=== PATIENT | male | born 1995 | race African-American/Black ===

== ENCOUNTER 2024-07-24 08:49 | Inpatient (IN) ==
--- NOTE | 2024-07-24 09:10 | ED Physician Documentation ---
PD HPI URI Stated complaint Stated Complaint: BLURRED VISION, MUSCLE SORENESS Chief complaint Chief Complaint: General History obtained from History obtained from: Patient History of Present Illness Timing - onset: How many days ago (1) Timing duration: Days (1) Timing details: Abrupt onset and Still present (noted pains and soreness of muscles diffusely yesterday, increased today, with noted dark colored urine and feeling lightheaded. Recent URI symptoms mild this past week. Works out at gym regularly but not recently excessive. No supplements such as creatine, no steroids, no keto diet, no statins. ) Associated symptoms: Nasal congestion, Rhinorrhea and Dry cough; No Fever, Sore throat or NVD Improves by: Rest Worsened by: Activity Similar symptoms before: Diagnosis (episode of rhabdo years ago with illness and working out hard. ) Recently seen: Not recently seen Meds/Allgy Home Medications Ambulatory Orders Medication Instructions Recorded Confirmed ascorbic acid (vitamin C) 500 mg 500 mg PO DAILY 07/24/24 07/24/24 tablet (Vitamin C) cholecalciferol (vitamin D3) 25 25 mcg PO DAILY 07/24/24 07/24/24 mcg (1,000 unit) capsule omeprazole 20 mg delayed 20 mg PO DAILY 07/24/24 07/24/24 release,disintegrating tablet Allergies Allergies Allergy/AdvReac Type Severity Reaction Status Date / Time No Known Drug Allergies Allergy Verified 07/24/24 09:09 [facility] Medical History Medical History (Updated 07/24/24 @ 22:43 by Lonny Cristobal MD) History of rhabdomyolysis Surgical History Surgical History (Updated 07/24/24 @ 09:07 by Alexandra Arceo, RN, BSN) No pertinent past surgical history Social History Social History (Updated 07/24/24 @ 09:07 by Alexandra Arceo, JOSE, BSN) Smoking Status: Never smoker Second hand tobacco smoke exposure: No Do you dip or chew tobacco?: No Do you vape?: No Relationship: Level: Independent Do you feel safe in your home environment?: Yes Suffered physical, verbal, emotional, or financial abuse?: No Frequency: Occasional Exam Constitutional normal general appearance, distress noted (mild) (having muscle pains with exxtremities movement and use but does not appear limited in movements. ) and average body habitus HENMT oropharynx normal Lymph no lymphadenopathy noted Chest inspection of chest normal and palpation of chest normal Respiratory breath sounds equal bilaterally and normal respiratory effort Cardiovascular normal heart rate noted, regular rhythm noted, no rub and no murmur Gastrointestinal abdomen soft to palpation, nontender to palpation and no hepatosplenomegaly Extremities general mild muscl tenderness to palpation. No rash nor sores noted. Neurology no movement abnormality noted Psychiatry mental status grossly normal, oriented x3 and thought process normal Skin skin color normal, no rash and no lesions Results Vitals Vitals: Vital Signs - 24 hr 07/24/24 09:02 07/24/24 09:24 07/24/24 10:06 Temperature 36.7 C Temperature Source Pulse Rate 62 63 Respiratory Rate 17 18 Blood Pressure 153/86 H 153/86 H O2 Saturation 100 99 O2 Source Room air Room air Pain Intensity 7 7 6 07/24/24 11:08 Temperature 36.8 C Temperature Source Temporal Artery Scan Pulse Rate 66 Respiratory Rate 16 Blood Pressure 99/80 O2 Saturation 94 O2 Source Room air Pain Intensity 3 Oxygen O2 Source Room air Labs Labs: Laboratory Tests 07/24/24 07/24/24 07/24/24 09:56 10:05 10:09 WBC 5.1 RBC 4.43 L Hgb 13.3 L Hct 38.4 L MCV 86.7 MCH 30.0 MCHC 34.6 RDW 11.9 L Plt Count 213 MPV 9.0 Neut # (Auto) 2.9 Lymph # (Auto) 1.6 [place] # (Auto) 0.4 Eos # (Auto) 0.2 Baso # (Auto) 0.0 Absolute Nucleated RBC 0.00 Nucleated RBC % 0.0 ESR 7 Sodium 137 Potassium 4.0 Chloride 104 Carbon Dioxide 31 Anion Gap 2.0 L BUN 16 Creatinine 1.1 Estimated GFR (MDRD) 97 Glucose 91 Calcium 9.4 Magnesium 2.1 Total Bilirubin 0.4 AST 688 H ALT 216 H Alkaline Phosphatase 61 Total Creatine Kinase > 86505 H* Total Protein 7.1 Albumin 4.2 Globulin 2.9 Albumin/Globulin Ratio 1.4 Lipase 17 Urine Color Urine Clarity Urine pH Ur Specific [place] Urine Protein Urine Glucose (UA) Urine Ketones Urine Occult Blood Urine Nitrite Urine Bilirubin Urine Urobilinogen Ur Leukocyte Esterase Urine RBC Urine WBC Ur Squamous Epith Cells Urine Bacteria Ur Microscopic Review Urine Culture Comments Nasal Adenovirus (PCR) NOT DETECTED Nasal B. parapertussis DNA (PCR) NOT DETECTED Nasal Coronavir 229E PCR NOT DETECTED Nasal Coronavir HKU1 PCR NOT DETECTED Nasal Coronavir NL63 PCR NOT DETECTED Nasal Coronavir OC43 PCR NOT DETECTED Nasal Enterovir/Rhinovir PCR DETECTED A Nasal Influenza B PCR NOT DETECTED Nasal Influenza A PCR NOT DETECTED Nasal Parainfluen 1 PCR NOT DETECTED Nasal Parainfluen 2 PCR NOT DETECTED Nasal Parainfluen 3 PCR NOT DETECTED Nasal Parainfluen 4 PCR NOT DETECTED Nasal RSV (PCR) NOT DETECTED Nasal B.pertussis DNA PCR NOT DETECTED Nasal C.pneumoniae (PCR) NOT DETECTED Earnest Human Metapneumo PCR NOT DETECTED Nasal M.pneumoniae (PCR) NOT DETECTED Nasal SARS-CoV-2 (PCR) NOT DETECTED Urine Opiates Screen NEGATIVE Ur Buprenorphine Scrn NEGATIVE Ur Oxycodone Screen NEGATIVE Urine Methadone Screen NEGATIVE Ur Barbiturates Screen NEGATIVE Ur Tricyclics Screen NEGATIVE Ur Phencyclidine Scrn NEGATIVE Ur Amphetamine Screen NEGATIVE U Methamphetamines Scrn NEGATIVE U Benzodiazepines Scrn NEGATIVE Urine Cocaine Screen NEGATIVE U Cannabinoids Screen NEGATIVE Ur Drug Screen Comment CUTOFF CONC BELOW: 07/24/24 10:10 WBC RBC Hgb Hct MCV MCH MCHC RDW Plt Count MPV Neut # (Auto) Lymph # (Auto) [place] # (Auto) Eos # (Auto) Baso # (Auto) Absolute Nucleated RBC Nucleated RBC % ESR Sodium Potassium Chloride Carbon Dioxide Anion Gap BUN Creatinine Estimated GFR (MDRD) Glucose Calcium Magnesium Total Bilirubin AST ALT Alkaline Phosphatase Total Creatine Kinase Total Protein Albumin Globulin Albumin/Globulin Ratio Lipase Urine Color YELLOW Urine Clarity CLEAR Urine pH 6.0 Ur Specific [place] 1.015 Urine Protein NEGATIVE Urine Glucose (UA) NEGATIVE Urine Ketones NEGATIVE Urine Occult Blood LARGE H Urine Nitrite NEGATIVE Urine Bilirubin NEGATIVE Urine Urobilinogen 0.2 (NORMAL) Ur Leukocyte Esterase NEGATIVE Urine RBC 0-5 Urine WBC 0-3 Ur Squamous Epith Cells RARE Squamous Urine Bacteria Rare Ur Microscopic Review INDICATED Urine Culture Comments NOT INDICATED Nasal Adenovirus (PCR) Nasal B. parapertussis DNA (PCR) Nasal Coronavir 229E PCR Nasal Coronavir HKU1 PCR Nasal Coronavir NL63 PCR Nasal Coronavir OC43 PCR Nasal Enterovir/Rhinovir PCR Nasal Influenza B PCR Nasal Influenza A PCR Nasal Parainfluen 1 PCR Nasal Parainfluen 2 PCR Nasal Parainfluen 3 PCR Nasal Parainfluen 4 PCR Nasal RSV (PCR) Nasal B.pertussis DNA PCR Nasal C.pneumoniae (PCR) Earnest Human Metapneumo PCR Nasal M.pneumoniae (PCR) Nasal SARS-CoV-2 (PCR) Urine Opiates Screen Ur Buprenorphine Scrn Ur Oxycodone Screen Urine Methadone Screen Ur Barbiturates Screen Ur Tricyclics Screen Ur Phencyclidine Scrn Ur Amphetamine Screen U Methamphetamines Scrn U Benzodiazepines Scrn Urine Cocaine Screen U Cannabinoids Screen Ur Drug Screen Comment PD Medical Decision Making ED course Complexity details: reviewed results (renal function slightly up at 1.1. lytes and glucose are okay. Rhinovirus on resp panel. CK is >80,000.), considered differential (recent uri symptoms this past week. Regular working out at gym did involved weight training and cardio as usual. Has diffuse muscle aches and dark urine. Consider rhabdo from combo of viral myositis and the exercise. ), d/w p atient (seems excessive signs of muscle breakdown for usual working out. Presume influenced by viral illness. no muscle injuries, infections. Does not take statins or recent antibiotics such as Bactrim. ) and d/w [employer] consultant (Hospitalist. ) Discharge Plan Discharge Patient Disposition: [facility] DC/Xfer Condition: Stable Clinical Impression: Viral myositis, Rhabdomyolysis, Generalized muscle ache, Recent URI Interventions: ED Admission Assessment Last Done: 07/24/24 13:34
[2024-07-24] MEDS: SODIUM CHLORIDE 0.9% 1,000 ML IV STA (10:06)
[2024-07-24] MEDS: KETOROLAC 15 MG/ML VIAL IVP STA (10:06)
[2024-07-24 10:09] LABS: EOSINOPHILS # (AUTO) 0.2 10^3/uL (0.0-0.7); EOSINOPHILS % (AUTO) 3.9 %; HCT - HEMATOCRIT 38.4 % (42.0-52.0); HGB - HEMOGLOBIN 13.3 g/dL (14.0-18.0); LYMPHOCYTES # (AUTO) 1.6 10^3/uL (1.5-3.5); LYMPHOCYTES % (AUTO) 30.5 %; MEAN CORPUSCULAR HGB CONC 34.6 g/dL (32.0-36.0); MEAN CORPUSCULAR VOLUME 86.7 fL (80.0-94.0); MONOCYTES # (AUTO) 0.4 10^3/uL (0.0-1.0); MONOCYTES % (AUTO) 8.3 %; NEUTROPHILS # (AUTO) 2.9 10^3/uL (1.5-6.6); NEUTROPHILS % (AUTO) 56.9 %; PLT - PLATELET COUNT 213 10^3/uL (130-450); RED BLOOD COUNT 4.43 10^6/uL (4.70-6.10); RED CELL DISTRIBUTION WIDTH 11.9 % (12.0-15.0); WHITE BLOOD COUNT 5.1 x10^3/uL (4.8-10.8)
[2024-07-24 10:14] LABS: BILIRUBIN,URINE NEGATIVE (NEGATIVE); GLUCOSE, URINE (UA) NEGATIVE (NEGATIVE); KETONES,URINE (UA) NEGATIVE (NEGATIVE); LEUKOCYTE ESTERASE, URINE NEGATIVE (NEGATIVE); NITRITE,URINE NEGATIVE (NEGATIVE); OCCULT BLOOD,URINE LARGE (NEGATIVE); PROTEIN,URINE NEGATIVE (NEGATIVE); UROBILINOGEN,URINE 0.2 (NORMAL) E.U./dL (NORMAL)
[2024-07-24 10:15] LABS: CLARITY,URINE CLEAR (CLEAR)
[2024-07-24 10:16] LABS: LIPASE 17 U/L (11-82); MAGNESIUM 2.1 mg/dL (1.7-2.3)
[2024-07-24 10:23] LABS: BACTERIA,URINE Rare /HPF (None Seen); RBC,URINE 0-5 /HPF (0-5); SQUAMOUS EPITHELIAL CELL,UR RARE Squamous (<= Few); WBC,URINE 0-3 /HPF (0-3)
[2024-07-24 10:24] LABS: ALBUMIN 4.2 g/dL (3.2-5.5); ALBUMIN/GLOBULIN RATIO 1.4 (1.0-2.2); ALKALINE PHOSPHATASE 61 IU/L (42-121); ALT ALANINE AMINOTRANSFERASE 216 IU/L (10-60); AST ASPARTATE AMINOTRANSFERASE 688 IU/L (10-42); BILIRUBIN,TOTAL 0.4 mg/dL (0.2-1.0); BUN - BLOOD UREA NITROGEN 16 mg/dL (6-20); CALCIUM 9.4 mg/dL (8.5-10.3); CARBON DIOXIDE - CO2 31 mmol/L (21-32); CHLORIDE 104 mmol/L (101-111); CREATININE 1.1 mg/dL (0.6-1.3); GFR - MDRD 97 (>89); GLUCOSE 91 mg/dL (74-104); SODIUM 137 mmol/L (135-145); TOTAL PROTEIN 7.1 g/dL (6.4-8.9)
[2024-07-24 11:11] LABS: B. PARAPERTUSSIS- RESP PCR PAN NOT DETECTED; B. PERTUSSIS- RESP PCR PANEL NOT DETECTED; C. PNEUMONIAE- RESP PCR PANEL NOT DETECTED; CORONAVIRUS 229E-RESP PCR NOT DETECTED; CORONAVIRUS HKU1-RESP PCR NOT DETECTED; CORONAVIRUS NL63-RESP PCR NOT DETECTED; CORONAVIRUS OC43-RESP PCR NOT DETECTED; HUMAN METAPNEUMOVIRUS NOT DETECTED; INFLUENZA A- RESP PCR PANEL NOT DETECTED; INFLUENZA B - RESP PCR PANEL NOT DETECTED; M. PNEUMONIAE- RESP PCR PANEL NOT DETECTED; PARAINFLUENZA VIRUS 1 NOT DETECTED; PARAINFLUENZA VIRUS 2 NOT DETECTED; PARAINFLUENZA VIRUS 3 NOT DETECTED; PARAINFLUENZA VIRUS 4 NOT DETECTED; RHINOVIRUS/ENTEROVIRUS DETECTED; RSV- RESP PCR PANEL NOT DETECTED; SARS-CoV-2 -RESP PCR PANEL NOT DETECTED
[2024-07-24 11:23] LABS: CK- CREATINE KINASE > 80000 IU/L (30-223)
[2024-07-24 12:30] LABS: AMPHETAMINE SCREEN,URINE NEGATIVE (NEGATIVE); BARBITURATE SCREEN,UR NEGATIVE (NEGATIVE); BENZODIAZEPINES SCREEN, URINE NEGATIVE (NEGATIVE); BUPRENORPHINE SCREEN, URINE NEGATIVE (NEGATIVE); COCAINE SCREEN URINE NEGATIVE (NEGATIVE); METHADONE SCREEN, URINE NEGATIVE (NEGATIVE); METHAMPHETAMINES SCREEN, URINE NEGATIVE (NEGATIVE); OPIATE SCREEN, URINE NEGATIVE (NEGATIVE); OXYCODONE SCREEN, URINE NEGATIVE (NEGATIVE); THC CANNABINOID SCREEN, URINE NEGATIVE (NEGATIVE); TRICYCLIC ANTIDEPRESSANT,URINE NEGATIVE (NEGATIVE)
--- NOTE | 2024-07-24 13:14 | HISTORY & PHYSICAL EXAMINATION ---
Chief Complaint Chief Complaint Chief Complaint: Muscle pain History of Present Illness History of Present Illness HPI Comment/Other: This is a 29-year-old -[place] male with no past medical history who presented to the ER today with a complaint of upper and lower extremity muscle pain. Patient states that he felt muscle pain on Tuesday evening which Exacerbated during the night and was worse on Tuesday. Patient states that it is difficult for him to extend his upper extremities and lift his lower extremities. Patient states that he had a similar episode 2 to 3 years ago. 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 Patient denies steroid use or drug use. Patient denies nausea, chest pain or shortness of breath. Patient confirms chronic neck pain. Lab values are remarkable for elevated creatinine kinase of 80,000, elevated AST and ALT. Creatinine is normal at 1.1. Patient makes urine. Patient was started on IV fluids in the ER. Patient is full code Meds/Allgy Home Medications Ambulatory Orders Medication Instructions Recorded Confirmed omeprazole 20 mg delayed 20 mg PO DAILY 07/24/24 07/24/24 release,disintegrating tablet Allergies Allergies Allergy/AdvReac Type Severity Reaction Status Date / Time No Known Drug Allergies Allergy Verified 07/24/24 09:09 [facility] Medical History Medical History (Updated 07/24/24 @ 13:20 by Sofía Grant DO) History of rhabdomyolysis Surgical History Surgical History (Updated 07/24/24 @ 09:07 by Alexandra Arceo, RN, BSN) No pertinent past surgical history Social History Social History (Updated 07/24/24 @ 09:07 by Alexandra Arceo RN, BSN) Smoking Status: Never smoker Second hand tobacco smoke exposure: No Do you dip or chew tobacco?: No Do you vape?: No Relationship: Level: Independent Do you feel safe in your home environment?: Yes Suffered physical, verbal, emotional, or financial abuse?: No Frequency: Occasional Review of Systems Status of ROS: 10 or more systems reviewed and unremarkable except as noted in history and below Exam Constitutional normal general appearance and no apparent distress HENMT normocephalic, head/scalp atraumatic, hearing grossly normal bilaterally and TMs normal bilaterally Eyes PERRL and EOMs intact bilaterally Neck/C-Spine visual inspection normal and trachea midline Respiratory breath sounds equal bilaterally and normal respiratory effort Cardiovascular normal heart rate noted and regular rhythm noted Gastrointestinal abdomen normal to inspection and abdomen soft to palpation Back/Pelvis spine normal to inspection, no thoracic spine tenderness and lumbar spine ROM normal Extremities normal to inspection and normal to palpation Neurology 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 Follow urine output for kidney function. Unlikely pt has a LPIN1 mutation -> no report of childhood rhabdo (2) Abnormal LFTs (liver function tests): Plan: Likely secondary to rhabdomyolysis. Monitor LFTs for resolution Of elevated LFTs Lab Results Lab results reviewed: Yes 07/24/24 09:56 07/24/24 09:56
[2024-07-24] MEDS ORDERED: SODIUM CHLORIDE FLUSH 0.9% 10 ML SYRINGE IVP PRN (13:35)
[2024-07-24] MEDS: SODIUM CHLORIDE 0.9% 1,000 ML IV SCH (14:22)
[2024-07-24] MEDS: oxyCODONE 5 MG TABLET PO PRN (16:03)
--- NOTE | 2024-07-24 16:05 | PHARMACY PROGRESS NOTE ---
Best Possible Medication History Admit Date and Time: 07/24/24 [id number] Home Medications Medication Instructions Recorded Confirmed Type ascorbic acid (vitamin C) 500 mg 500 mg PO DAILY 07/24/24 07/24/24 History tablet (Vitamin C) cholecalciferol (vitamin D3) 25 25 mcg PO DAILY 07/24/24 07/24/24 History mcg (1,000 unit) capsule omeprazole 20 mg delayed 20 mg PO DAILY 07/24/24 07/24/24 History release,disintegrating tablet Processed by: Pharmacy (Medication Reconciliation completed by Marketing Budget AnalystNikia) Medications reviewed in ED?: No Medication History completed: Yes Patient Interview: Completed Secondary Source(s): Insurance records [facility] Statement: As the person ultimately responsible for medication therapy, providers are able to order a medication from an existing home medication list in [facility] via the "Reconcile Routine" prior to Confirmation of that medication by technical support specialist. Such practice is discouraged except when the physician, in their clinical judgment, deems that a medical need exists for a medication without regard to previous use.
[2024-07-24] MEDS: SODIUM CHLORIDE FLUSH 0.9% 10 ML SYRINGE IVP SCH (17:24)
[2024-07-24] MEDS: HEPARIN 5,000 UNIT/ML VIAL SUBQ SCH (22:34)
[2024-07-25 06:09] LABS: BASOPHILS % (AUTO) 0.3 %; EOSINOPHILS # (AUTO) 0.3 10^3/uL (0.0-0.7); EOSINOPHILS % (AUTO) 4.8 %; HCT - HEMATOCRIT 38.9 % (42.0-52.0); HGB - HEMOGLOBIN 13.1 g/dL (14.0-18.0); LYMPHOCYTES # (AUTO) 2.3 10^3/uL (1.5-3.5); LYMPHOCYTES % (AUTO) 34.4 %; MEAN CORPUSCULAR HEMOGLOBIN 29.6 pg (27.0-31.0); MEAN CORPUSCULAR HGB CONC 33.7 g/dL (32.0-36.0); MEAN CORPUSCULAR VOLUME 87.8 fL (80.0-94.0); MEAN PLATELET VOLUME 9.1 fL (7.4-11.4); MONOCYTES # (AUTO) 0.6 10^3/uL (0.0-1.0); MONOCYTES % (AUTO) 8.5 %; NEUTROPHILS # (AUTO) 3.5 10^3/uL (1.5-6.6); NEUTROPHILS % (AUTO) 51.7 %; PLT - PLATELET COUNT 218 10^3/uL (130-450); RED BLOOD COUNT 4.43 10^6/uL (4.70-6.10); RED CELL DISTRIBUTION WIDTH 11.9 % (12.0-15.0); WHITE BLOOD COUNT 6.7 x10^3/uL (4.8-10.8)
[2024-07-25 07:58] LABS: BUN - BLOOD UREA NITROGEN 14 mg/dL (6-20); CALCIUM 9.2 mg/dL (8.5-10.3); CARBON DIOXIDE - CO2 31 mmol/L (21-32); CHLORIDE 108 mmol/L (101-111); CREATININE 1.1 mg/dL (0.6-1.3); GFR - MDRD 97 (>89); GLUCOSE 94 mg/dL (74-104); POTASSIUM 4.3 mmol/L (3.5-4.5); SODIUM 141 mmol/L (135-145)
[2024-07-25 08:02] LABS: CK- CREATINE KINASE > 80000 IU/L (30-223)
--- NOTE | 2024-07-25 09:10 | PROVIDER PROGRESS NOTE ---
Subjective Prog Note Date Prog Note Date: 07/25/24 Subjective Subjective: This is a 29-year-old -[place] male with no past medical history who presented to the ER today with a complaint of upper and lower extremity muscle pain. Patient states that he felt muscle pain on Tuesday evening which Exacerbated during the night and was worse on Tuesday. Patient states that it is difficult for him to extend his upper extremities and lift his lower extremities. Patient states that he had a similar episode 2 to 3 years ago. 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 Patient denies steroid use or drug use. Patient denies nausea, chest pain or shortness of breath. Patient confirms chronic neck pain. Lab values are remarkable for elevated creatinine kinase of 80,000, elevated AST and ALT. Creatinine is normal at 1.1. Patient makes urine. Patient was started on IV fluids in the ER. Patient is full code 07/25/2024: Patient states he feels better, muscle pain has somewhat resolved. Patient denies any shortness of breath or chest pain. Current Medications Current Medications Current Medications: Current Medications Generic Name Dose Route Start Last Admin Trade Name Freq PRN Reason Stop Dose Admin Heparin Sodium (Porcine) 5,000 unit 07/24/24 21:00 07/24/24 22:34 Heparin 5,000 Unit/Ml Vial SUBQ 5,000 unit BID FLOYD Administration Sodium Chloride 1,000 mls @ 125 mls/hr 07/24/24 13:35 07/25/24 06:36 Normal Saline 0.9% IV 07/25/24 13:18 125 mls/hr .Q8H FLOYD Administration Oxycodone HCl 5 mg 07/24/24 13:35 07/24/24 16:03 Oxycodone 5 Mg Tablet PO 5 mg Q4HR PRN Administration Pain 5 to 7 Sodium Chloride 10 ml 07/24/24 13:35 Sodium Chloride Flush 0.9% 10 Ml Syringe IVP PRN PRN NEEDED PER PROVIDER ORDERS Sodium Chloride 10 ml 07/24/24 17:00 07/25/24 00:06 Sodium Chloride Flush 0.9% 10 Ml Syringe IVP 10 ml 0100,0900,1700 FLOYD Administration Objective Vital Signs/Intake & Output Vital Signs: Vital Signs x48h Temp Pulse Resp BP Pulse Ox 07/25/24 05:08 37 C 53 L 14 108/53 L 99 Intake & Output: Intake & Output 07/23/24 07/24/24 07/25/24 07/26/24 05:59 05:59 05:59 05:59 Intake Total 1999 1000 / 999 Balance 1999 1000 / 999 Weight (kg) 79.5 kg Objective General Appearance: positive No acute distress and Alert ENT: positive ENT inspection nml and Pharynx nml Neck: positive Nml inspection, Thyroid nml and Trachea midline Respiratory: positive Chest non-tender and No respiratory distress Cardiovascular: positive Regular rate & rhythm and No murmur Abdomen: positive Non-tender, No organomegaly and Nml bowel sounds Skin: positive Color nml and No rash Extremities: positive Non-tender, Full ROM and No pedal edema Neurologic/Psychiatric: positive Oriented x3 and CN's nml (2-12) Lab Results 07/25/24 05:55 07/25/24 05:55 Other Labs: Lab Results x24hrs 07/25/24 07/24/24 07/24/24 Range/Units 05:55 10:10 10:09 WBC 6.7 (4.8-10.8) x10^3/uL RBC 4.43 L (4.70-6.10) 10^6/uL Hgb 13.1 L (14.0-18.0) g/dL Hct 38.9 L (42.0-52.0) % MCV 87.8 (80.0-94.0) fL MCH 29.6 (27.0-31.0) pg MCHC 33.7 (32.0-36.0) g/dL RDW 11.9 L (12.0-15.0) % Plt Count 218 (130-450) 10^3/uL MPV 9.1 (7.4-11.4) fL Neut # (Auto) 3.5 (1.5-6.6) 10^3/uL Lymph # (Auto) 2.3 (1.5-3.5) 10^3/uL [place] # (Auto) 0.6 (0.0-1.0) 10^3/uL Eos # (Auto) 0.3 (0.0-0.7) 10^3/uL Baso # (Auto) 0.0 (0.0-0.1) 10^3/uL Absolute Nucleated RBC 0.00 x10^3/uL Nucleated RBC % 0.0 /100WBC ESR (0-15) mm/Hr Sodium 141 (135-145) mmol/L Potassium 4.3 (3.5-4.5) mmol/L Chloride 108 (101-111) mmol/L Carbon Dioxide 31 (21-32) mmol/L Anion Gap 2.0 L (6-13) BUN 14 (6-20) mg/dL Creatinine 1.1 (0.6-1.3) mg/dL Estimated GFR (MDRD) 97 (>89) Glucose 94 (74-104) mg/dL Calcium 9.2 (8.5-10.3) mg/dL Magnesium (1.7-2.3) mg/dL Total Bilirubin (0.2-1.0) mg/dL AST (10-42) IU/L ALT (10-60) IU/L Alkaline Phosphatase (42-121) IU/L Total Creatine Kinase > 27685 H* (30-223) IU/L Total Protein (6.4-8.9) g/dL Albumin (3.2-5.5) g/dL Globulin (2.1-4.2) g/dL Albumin/Globulin Ratio (1.0-2.2) Lipase (11-82) U/L Urine Color YELLOW Urine Clarity CLEAR (CLEAR) Urine pH 6.0 (5.0-7.5) PH Ur Specific [place] 1.015 (1.002-1.030) Urine Protein NEGATIVE (NEGATIVE) mg/dL Urine Glucose (UA) NEGATIVE (NEGATIVE) mg/dL Urine Ketones NEGATIVE (NEGATIVE) mg/dL Urine Occult Blood LARGE H (NEGATIVE) Urine Nitrite NEGATIVE (NEGATIVE) Urine Bilirubin NEGATIVE (NEGATIVE) Urine Urobilinogen 0.2 (NORMAL) (NORMAL) E.U./dL Ur Leukocyte Esterase NEGATIVE (NEGATIVE) Urine RBC 0-5 (0-5) /HPF Urine WBC 0-3 (0-3) /HPF Ur Squamous Epith Cells RARE Squamous (<= Few) Urine Bacteria Rare (None Seen) /HPF Ur Microscopic Review INDICATED Urine Culture Comments NOT INDICATED Nasal Adenovirus (PCR) Nasal B. parapertussis DNA (PCR) Nasal Coronavir 229E PCR Nasal Coronavir HKU1 PCR Nasal Coronavir NL63 PCR Nasal Coronavir OC43 PCR Nasal Enterovir/Rhinovir PCR Nasal Influenza B PCR Nasal Influenza A PCR Nasal Parainfluen 1 PCR Nasal Parainfluen 2 PCR Nasal Parainfluen 3 PCR Nasal Parainfluen 4 PCR Nasal RSV (PCR) Nasal B.pertussis DNA PCR Nasal C.pneumoniae (PCR) Earnest Human Metapneumo PCR Nasal M.pneumoniae (PCR) Nasal SARS-CoV-2 (PCR) Urine Opiates Screen NEGATIVE (NEGATIVE) Ur Buprenorphine Scrn NEGATIVE (NEGATIVE) Ur Oxycodone Screen NEGATIVE (NEGATIVE) Urine Methadone Screen NEGATIVE (NEGATIVE) Ur Barbiturates Screen NEGATIVE (NEGATIVE) Ur Tricyclics Screen NEGATIVE (NEGATIVE) Ur Phencyclidine Scrn NEGATIVE (NEGATIVE) Ur Amphetamine Screen NEGATIVE (NEGATIVE) U Methamphetamines Scrn NEGATIVE (NEGATIVE) U Benzodiazepines Scrn NEGATIVE (NEGATIVE) Urine Cocaine Screen NEGATIVE (NEGATIVE) U Cannabinoids Screen NEGATIVE (NEGATIVE) Ur Drug Screen Comment CUTOFF CONC BELOW: 07/24/24 07/24/24 Range/Units 10:05 09:56 WBC 5.1 (4.8-10.8) x10^3/uL RBC 4.43 L (4.70-6.10) 10^6/uL Hgb 13.3 L (14.0-18.0) g/dL Hct 38.4 L (42.0-52.0) % MCV 86.7 (80.0-94.0) fL MCH 30.0 (27.0-31.0) pg MCHC 34.6 (32.0-36.0) g/dL RDW 11.9 L (12.0-15.0) % Plt Count 213 (130-450) 10^3/uL MPV 9.0 (7.4-11.4) fL Neut # (Auto) 2.9 (1.5-6.6) 10^3/uL Lymph # (Auto) 1.6 (1.5-3.5) 10^3/uL [place] # (Auto) 0.4 (0.0-1.0) 10^3/uL Eos # (Auto) 0.2 (0.0-0.7) 10^3/uL Baso # (Auto) 0.0 (0.0-0.1) 10^3/uL Absolute Nucleated RBC 0.00 x10^3/uL Nucleated RBC % 0.0 /100WBC ESR 7 (0-15) mm/Hr Sodium 137 (135-145) mmol/L Potassium 4.0 (3.5-4.5) mmol/L Chloride 104 (101-111) mmol/L Carbon Dioxide 31 (21-32) mmol/L Anion Gap 2.0 L (6-13) BUN 16 (6-20) mg/dL Creatinine 1.1 (0.6-1.3) mg/dL Estimated GFR (MDRD) 97 (>89) Glucose 91 (74-104) mg/dL Calcium 9.4 (8.5-10.3) mg/dL Magnesium 2.1 (1.7-2.3) mg/dL Total Bilirubin 0.4 (0.2-1.0) mg/dL AST 688 H (10-42) IU/L ALT 216 H (10-60) IU/L Alkaline Phosphatase 61 (42-121) IU/L Total Creatine Kinase > 65427 H* (30-223) IU/L Total Protein 7.1 (6.4-8.9) g/dL Albumin 4.2 (3.2-5.5) g/dL Globulin 2.9 (2.1-4.2) g/dL Albumin/Globulin Ratio 1.4 (1.0-2.2) Lipase 17 (11-82) U/L Urine Color Urine Clarity (CLEAR) Urine pH (5.0-7.5) PH Ur Specific [place] (1.002-1.030) Urine Protein (NEGATIVE) mg/dL Urine Glucose (UA) (NEGATIVE) mg/dL Urine Ketones (NEGATIVE) mg/dL Urine Occult Blood (NEGATIVE) Urine Nitrite (NEGATIVE) Urine Bilirubin (NEGATIVE) Urine Urobilinogen (NORMAL) E.U./dL Ur Leukocyte Esterase (NEGATIVE) Urine RBC (0-5) /HPF Urine WBC (0-3) /HPF Ur Squamous Epith Cells (<= Few) Urine Bacteria (None Seen) /HPF Ur Microscopic Review Urine Culture Comments Nasal Adenovirus (PCR) NOT DETECTED Nasal B. parapertussis DNA (PCR) NOT DETECTED Nasal Coronavir 229E PCR NOT DETECTED Nasal Coronavir HKU1 PCR NOT DETECTED Nasal Coronavir NL63 PCR NOT DETECTED Nasal Coronavir OC43 PCR NOT DETECTED Nasal Enterovir/Rhinovir PCR DETECTED A Nasal Influenza B PCR NOT DETECTED Nasal Influenza A PCR NOT DETECTED Nasal Parainfluen 1 PCR NOT DETECTED Nasal Parainfluen 2 PCR NOT DETECTED Nasal Parainfluen 3 PCR NOT DETECTED Nasal Parainfluen 4 PCR NOT DETECTED Nasal RSV (PCR) NOT DETECTED Nasal B.pertussis DNA PCR NOT DETECTED Nasal C.pneumoniae (PCR) NOT DETECTED Earnest Human Metapneumo PCR NOT DETECTED Nasal M.pneumoniae (PCR) NOT DETECTED Nasal SARS-CoV-2 (PCR) NOT DETECTED Urine Opiates Screen (NEGATIVE) Ur Buprenorphine Scrn (NEGATIVE) Ur Oxycodone Screen (NEGATIVE) Urine Methadone Screen (NEGATIVE) Ur Barbiturates Screen (NEGATIVE) Ur Tricyclics Screen (NEGATIVE) Ur Phencyclidine Scrn (NEGATIVE) Ur Amphetamine Screen (NEGATIVE) U Methamphetamines Scrn (NEGATIVE) U Benzodiazepines Scrn (NEGATIVE) Urine Cocaine Screen (NEGATIVE) U Cannabinoids Screen (NEGATIVE) Ur Drug Screen Comment Diagnostic Imaging Diagnostic Imaging Results: positive Final report reviewed Assessment/Plan Problem List (1) Rhabdomyolysis: Impression: Continue aggressive IV fluids, Monitor urine output and creatinine. Monitor liver function. Patient's symptoms have improved per patient. (2) Abnormal LFTs (liver function tests): Impression: Continue to monitor for resolution (3) Viral myositis: Impression: Patient tested positive for human entero/rhinovirus. It is very possible that patient has viral myositis. Continue treatment as listed under Rhabdomyolysis. Patient is now in respiratory isolation.
[2024-07-25] MEDS: CYCLOBENZAPRINE 10 MG TABLET PO PRN (15:45)
[2024-07-26 05:43] LABS: ALBUMIN 4.3 g/dL (3.2-5.5); ALBUMIN/GLOBULIN RATIO 1.5 (1.0-2.2); BILIRUBIN,TOTAL 0.3 mg/dL (0.2-1.0); CALCIUM 9.7 mg/dL (8.5-10.3); CREATININE 1.1 mg/dL (0.6-1.3); POTASSIUM 4.4 mmol/L (3.5-4.5); TOTAL PROTEIN 7.2 g/dL (6.4-8.9)
[2024-07-26] MEDS: PANTOPRAZOLE 40 MG TABLET PO SCH (06:19)
[2024-07-26] MEDS: CHOLECALCIFEROL 25 MCG TABLET PO SCH (08:57)
[2024-07-26] MEDS: ASCORBIC ACID 500 MG TABLET PO SCH (08:57)
[2024-07-26] MEDS ORDERED: OMEPRAZOLE 20 MG PO SCH (09:00)
--- NOTE | 2024-07-26 09:20 | PROVIDER PROGRESS NOTE ---
Subjective Prog Note Date Prog Note Date: 07/26/24 Subjective Subjective: This is a 29-year-old -[place] male with no past medical history who presented to the ER today with a complaint of upper and lower extremity muscle pain. Patient states that he felt muscle pain on Tuesday evening which Exacerbated during the night and was worse on Tuesday. Patient states that it is difficult for him to extend his upper extremities and lift his lower extremities. Patient states that he had a similar episode 2 to 3 years ago. 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 Patient denies steroid use or drug use. Patient denies nausea, chest pain or shortness of breath. Patient confirms chronic neck pain. Lab values are remarkable for elevated creatinine kinase of 80,000, elevated AST and ALT. Creatinine is normal at 1.1. Patient makes urine. Patient was started on IV fluids in the ER. Patient is full code 07/25/2024: Patient states he feels better, muscle pain has somewhat resolved. Patient denies any shortness of breath or chest pain. 07/26/2094: Patient states He has episodes of muscle spasm With minimal pain. He feels Flexeril is minimal effective. Patient has no other complaints. Current Medications Current Medications Current Medications: Current Medications Generic Name Dose Route Start Last Admin Trade Name Freq PRN Reason Stop Dose Admin Ascorbic Acid 500 mg 07/26/24 09:00 07/26/24 08:57 Ascorbic Acid 500 Mg Tablet PO 500 mg DAILY FLOYD Administration Cholecalciferol 25 mcg 07/26/24 09:00 07/26/24 08:57 Cholecalciferol 25 Mcg Tablet PO 25 mcg DAILY FLOYD Administration Cyclobenzaprine HCl 10 mg 07/25/24 15:08 07/26/24 05:18 Cyclobenzaprine 10 Mg Tablet PO 10 mg TID PRN Administration Spasms Heparin Sodium (Porcine) 5,000 unit 07/24/24 21:00 07/26/24 08:57 Heparin 5,000 Unit/Ml Vial SUBQ Not Given BID FLOYD Oxycodone HCl 5 mg 07/24/24 13:35 07/24/24 16:03 Oxycodone 5 Mg Tablet PO 5 mg Q4HR PRN Administration Pain 5 to 7 Pantoprazole Sodium 40 mg 07/26/24 07:00 07/26/24 06:19 Pantoprazole 40 Mg Tablet PO 40 mg QDAC FLOYD Administration Sodium Chloride 10 ml 07/24/24 13:35 Sodium Chloride Flush 0.9% 10 Ml Syringe IVP PRN PRN NEEDED PER PROVIDER ORDERS Sodium Chloride 10 ml 07/24/24 17:00 07/26/24 08:57 Sodium Chloride Flush 0.9% 10 Ml Syringe IVP 10 ml 0100,0900,1700 FLOYD Administration Objective Vital Signs/Intake & Output Vital Signs: Vital Signs x48h Temp Pulse Resp BP Pulse Ox 07/26/24 08:55 36.7 C 61 18 123/72 100 07/26/24 05:40 36.5 C 67 16 123/70 100 Intake & Output: Intake & Output 07/24/24 07/25/24 07/26/24 07/27/24 05:59 05:59 05:59 05:59 Intake Total 1999 3750 / 3750 840 / 840 Balance 1999 3750 / 3750 840 / 840 Weight (kg) 79.5 kg Objective General Appearance: positive No acute distress and Alert ENT: positive ENT inspection nml and Pharynx nml Neck: positive Nml inspection, Thyroid nml and Trachea midline Respiratory: positive Chest non-tender and No respiratory distress Cardiovascular: positive Regular rate & rhythm and No murmur Abdomen: positive Non-tender, No organomegaly and Nml bowel sounds Skin: positive Color nml and No rash Extremities: positive Non-tender, Full ROM and No pedal edema Neurologic/Psychiatric: positive Oriented x3 and CN's nml (2-12) Lab Results 07/25/24 05:55 07/26/24 05:18 Other Labs: Lab Results x24hrs 07/26/24 Range/Units 05:18 Sodium 139 (135-145) mmol/L Potassium 4.4 (3.5-4.5) mmol/L Chloride 105 (101-111) mmol/L Carbon Dioxide 32 (21-32) mmol/L Anion Gap 2.0 L (6-13) BUN 14 (6-20) mg/dL Creatinine 1.1 (0.6-1.3) mg/dL Estimated GFR (MDRD) 97 (>89) Glucose 96 (74-104) mg/dL Calcium 9.7 (8.5-10.3) mg/dL Total Bilirubin 0.3 (0.2-1.0) mg/dL AST 692 H (10-42) IU/L ALT 283 H (10-60) IU/L Alkaline Phosphatase 62 (42-121) IU/L Total Protein 7.2 (6.4-8.9) g/dL Albumin 4.3 (3.2-5.5) g/dL Globulin 2.9 (2.1-4.2) g/dL Albumin/Globulin Ratio 1.5 (1.0-2.2) Diagnostic Imaging Diagnostic Imaging Results: positive Final report reviewed Assessment/Plan Problem List (1) Rhabdomyolysis: Impression: Continue aggressive IV fluids, Monitor urine output and creatinine. AST ALT is still quite elevated. Monitor creatinine kinase for resolution. (2) Abnormal LFTs (liver function tests): Impression: AST/ALT are still quite elevated. Obtain hepatic ultrasound. Patient denies any right upper quadrant pain. Consider hepatitis study based on US report (3) Viral myositis: Impression: Patient tested positive for human entero/rhinovirus. It is very possible that patient has viral myositis. Continue IV fluids. Patient denies any respiratory symptoms. Patient is now in respiratory isolation.
[2024-07-26] MEDS: SODIUM CHLORIDE 0.9% 1,000 ML IV SCH (11:12)
--- NOTE | 2024-07-26 18:36 | Ultrasound Report ---
PROCEDURE: US Abdomen Limited INDICATIONS: elevated LFTs TECHNIQUE: Real-time focused scanning was performed of the abdomen, with image documentation. COMPARISONS: None. FINDINGS: Liver: Liver is normal in size and mildly heterogeneous in echotexture. No focal liver lesions are s een. The main portal vein demonstrates normal size and hepatopedal flow. Gallbladder: No gallstones, sludge, wall thickening or pericholecystic edema. Biliary ducts: Intrahepatic bile ducts are non-dilated. Extrahepatic bile duct caliber measures 7 m m. Normal is 6-7 mm or less in diameter, or 10 mm or less post-cholecystectomy. Pancreas: Visualized portions of the pancreas are sonographically normal. Right kidney: Normal in size and echotexture. Right kidney measures 10.2 cm long. No hydronephrosis or nephrolithiasis. No solid masses. No complex renal cystic lesions which require follow-up. IVC: Intrahepatic inferior vena cava is patent. Miscellaneous: No free abdominal fluid. IMPRESSION: Normal-appearing gallbladder. The common duct measures near the upper limits of normal at 7 mm. Mildly heterogeneous liver, without a focal lesion seen. Note: Concordant preliminary findings given by the production broacher upon the completion of the examination to Sofía Grant. Reviewed by: Davon Strickland MD on 07/26/2024 5:34 PM [facility] Approved by: Davon Strickland MD on 07/26/2024 5:34 PM [facility] Station ID: [id number]
[2024-07-27 06:19] LABS: ALBUMIN 3.7 g/dL (3.2-5.5); ALBUMIN/GLOBULIN RATIO 1.4 (1.0-2.2); BILIRUBIN,TOTAL 0.2 mg/dL (0.2-1.0); CALCIUM 9.4 mg/dL (8.5-10.3); CREATININE 1.1 mg/dL (0.6-1.3); TOTAL PROTEIN 6.4 g/dL (6.4-8.9)
[2024-07-27 07:50] VITALS: O2SAT 97
--- NOTE | 2024-07-27 08:43 | Discharge Summary ---
Discharge Summary Admit Date: 07/24/24 Discharge Date: 07/27/24 Discharging Provider: Dr. Grant Code Status: Attempt Resuscitation DIAGNOSES Admission Diagnoses: Rhabdomyolysis Elevated liver enzymes Discharge Diagnoses with Status of Each Condition: Rhabdomyolysis, viral myositis Elevated liver enzymes HPI History of Present Illness: This is a 29-year-old -[place] male with no past medical history who presented to the ER today with a complaint of upper and lower extremity muscle pain. Patient states that he felt muscle pain on Tuesday evening which Exacerbated during the night and was worse on Tuesday. Patient states that it is difficult for him to extend his upper extremities and lift his lower extremities. Patient states that he had a similar episode 2 to 3 years ago. 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 Patient denies steroid use or drug use. Patient denies nausea, chest pain or shortness of breath. Patient confirms chronic neck pain. Lab values are remarkable for elevated creatinine kinase of 80,000, elevated AST and ALT. Creatinine is normal at 1.1. Patient makes urine. Patient was started on IV fluids in the ER. Patient is full code HOSPITAL COURSE Hospital Course: Patient was started on IV hydration, creatinine kinase and liver enzymes were monitored. Creatinine kinase decreased from a high above 80,000 to about 40,000. Liver enzymes continued to decrease. Ultrasound of the liver was negative for any lesions or acute pathology. Patient was discharged with muscle relaxant and pain medication on 07/27/2024 in stable condition. ALLERGIES Allergies Allergy/AdvReac Type Severity Reaction Status Date / Time No Known Drug Allergies Allergy Verified 07/24/24 09:09 MEDICATIONS Ambulatory Orders Medication Instructions Recorded Confirmed ascorbic acid (vitamin C) 500 mg 500 mg PO DAILY 07/24/24 07/24/24 tablet (Vitamin C) cholecalciferol (vitamin D3) 25 25 mcg PO DAILY 07/24/24 07/24/24 mcg (1,000 unit) capsule omeprazole 20 mg delayed 20 mg PO DAILY 07/24/24 07/24/24 release,disintegrating tablet cyclobenzaprine 5 mg tablet 5 mg PO TID PRN Spasms #10 tabs 07/27/24 oxycodone 5 mg tablet 5 mg PO Q4HR PRN Pain 5 to 7 #14 07/27/24 tabs PHYSICAL EXAM AT DISCHARGE General Appearance: positive No acute distress and Alert Eyes Bilateral: positive Normal inspection, PERRL and EOMI ENT: positive ENT inspection nml and Pharynx nml Neck: positive Nml inspection and Trachea midline Respiratory: positive Chest non-tender and No respiratory distress Cardiovascular: positive Regular rate & rhythm and No murmur Abdomen: positive Non-tender and No organomegaly Skin: positive Color nml, No rash, Warm and Dry Extremities: positive Full ROM and Other (Slight muscle pain upon Extension) Neurologic/Psychiatric: positive Oriented x3, CN's nml (2-12) and Sensation nml LABS 07/25/24 05:55 07/27/24 05:52 DIAGNOSTIC IMAGING Diagnostic Imaging Results: Final report reviewed TIME SPENT Time Spent in Discharge (Minutes): 30 Discharge Plan Discharge Patient Disposition: Home, Self Care Condition: Stable Medically Cleared Date:: 07/27/24 Prescriptions: New oxycodone 5 mg Tablet 5 mg PO Q4HR PRN (Reason: Pain 5 to 7) Qty: 14 0RF cyclobenzaprine 5 mg tablet 5 mg PO TID PRN (Reason: Spasms) Qty: 10 0RF Continued omeprazole 20 mg tablet,disintegrat, delay rel 20 mg PO DAILY cholecalciferol (vitamin D3) 25 mcg (1,000 unit) capsule 25 mcg PO DAILY ascorbic acid (vitamin C) [Vitamin C] 500 mg tablet 500 mg PO DAILY Activity Restrictions: Additional Comments Activity Restrictions/Additional Instructions: do not workout or lift weights for 1 week Diet: Regular Health Concerns: You are admitted for rhabdomyolysis with a highly increased creatinine kinase of greater than 80,000 and elevated liver enzymes. You are also positive for human rhinovirus, which most likely contributed to rhabdomyolysis. Ultrasound of the liver was negative for any lesions. Creatinine kinase was going down upon discharge. He will prescription for Flexeril for muscle spasm and oxycodone for muscle pain. Best to follow-up with your primary care physician within a week to monitor for resolution of elevated liver enzymes and creatinine kinase. Care Plan Goals: Follow-up with primary care physician within the week To monitor resolution of creatinine kinase And elevated liver enzymes Print Language: Nepali Patient Instructions: Rhabdomyolysis Stand Alone Forms: PCP List
== END 2024-07-27 09:12 | disposition home or self-care (01) | DRG 558 ==
LOC: ED 08:49 → MS2 08:49
PROVIDERS: ADMIT Internal Medicine; ATTEND Internal Medicine
DX: B97.10 Unspecified enterovirus as the cause of diseases classified elsewhere; R74.01 Elevation of levels of liver transaminase levels; M60.009 Infective myositis, unspecified site; Z20.818 Contact with and (suspected) exposure to other bacterial communicable diseases; B97.89 Other viral agents as the cause of diseases classified elsewhere; M54.2 Cervicalgia; Z20.828 Contact with and (suspected) exposure to other viral communicable diseases; G89.29 Other chronic pain; Z20.822 Contact with and (suspected) exposure to COVID-19; M62.82 Rhabdomyolysis; Z79.899 Other long term (current) drug therapy